=== PATIENT | female | born 1980 | race Caucasian/White ===

== ENCOUNTER → 2017-11-20 | Outpatient (CLI) | payer OTHER | LOC: FIMAGING 13:44 | PROVIDERS: ATTEND Physician Assistant Medical | DX: R20.0 Anesthesia of skin (principal); R20.2 Paresthesia of skin; R51 Headache ==

== ENCOUNTER 2017-12-07 09:58 | Emergency (ER) | payer OTHER ==
[2017-12-07 10:03] VITALS: TEMP 97.7
--- NOTE | 2017-12-07 13:01 | EDPHY ---
H & P Smoking Status: Current every day smoker Time Seen by Provider: 12/07/17 11:08 HPI/ROS: CHIEF COMPLAINT: Constipation HISTORY OF PRESENT ILLNESS: 29-year-old female presents to the emergency department with a history of chronic constipation. She also has a history of chronic bowel issues. She has gluten intolerant. She was recently started on amitriptyline which she thinks flared up her got. She denies any diarrhea. Denies abdominal pain. Denies chest pain or difficulty breathing. Denies fevers or chills. She tried multiple laxatives yesterday without relief. She is able to pass gas. REVIEW OF SYSTEMS: Constitutional: No fever, no chills. Eyes: No double or blurry vision. ENT: No sore throat. Respiratory: No cough, no shortness of breath. Cardiac: No chest pain. Gastrointestinal: Mild abdominal pain. Constipation. No vomiting or diarrhea. Genitourinary: No dysuria. Musculoskeletal: No neck or back pain. Skin: No rashes. Neurological: No headache. (IsaelChen Bam) Past Medical/Surgical History: Chronic GI issues, gluten intolerance (Bambi Kirklanda Bam) Social History: Single (Chen Kirkland) Physical Exam: General Appearance: Alert, no distress. Eyes: Pupils equal and round. Extraocular motions are all intact. ENT: Mouth: Mucous membranes moist. Respiratory: No wheezing, rhonchi, or rales, lungs are clear to auscultation. Cardiovascular: Regular rate and rhythm. Gastrointestinal: Abdomen is soft and nontender, no masses, no rebound or guarding, bowel sounds normal. No CVA tenderness bilaterally. Neurological: Alert and oriented x 3, cranial nerves II through XII grossly intact Skin: Warm and dry, no rashes. Musculoskeletal: Nontender to palpate along the cervical, thoracic or lumbar spine. Neck is supple. Extremities: Full range of motion and no peripheral edema. Psychiatric: Patient is oriented X 3, there is no agitation. (Colleen Kirklandrina Bam) Constitutional: Initial Vital Signs Temperature (C) 36.5 C 12/07/17 10:01 Heart Rate 95 12/07/17 10:01 Respiratory Rate 18 12/07/17 10:01 Blood Pressure 153/86 H 12/07/17 10:01 O2 Sat (%) 96 12/07/17 10:01 O2 Delivery Mode Room Air Allergies/Adverse Reactions: No Known Allergies Allergy (Unverified 12/07/17 10:00) Home Medications: Medication Instructions Recorded Estradiol 12/07/17 Laxative 12/07/17 Medical Decision Making ED Course/Re-evaluation: 37-year-old female presents to the emergency department with constipation. Patient had an x-ray done as an outpatient 1 week ago and she declined another x -ray. I did do a rectal exam and there was no stool noted. She did have a Fleet's enema and was not able to have a bowel movement. She has no abdominal pain. She feels comfortable being discharged home. She was requesting something different for her constipation. I did give her some GoLYTELY to go home with and she may use half a prep. I also encouraged to have close follow- up with GI the [facility]. (Chen Kirkland) I did not see this patient while she was in the emergency department. However her care was discussed with the PA while the patient was in the department. I agree with treatment plan and management (Roberto Lopez) Differential Diagnosis: Including but not limited to constipation, bowel obstruction, colitis (Chen Kirkland) Departure - Departure Disposition: Home, Routine, Self-Care Clinical Impression: Constipation Condition: Good Instructions: Constipation (ED) Additional Instructions: You may try magnesium citrate as directed. Drink plenty of fluids. You should keep scheduled follow-up appointment with Gastroenterology. Return to the emergency department sooner if he developed blood in her stool, fever, or if you feel worse in any way. Referrals: PABLO URRUTIA [Primary Care Provider] - As per Instructions Mary Kate Logan MD [Medical Doctor] - As per Instructions (Newsp[employer] on- call)
[2017-12-07 13:59] VITALS: BP 114/75; PULSE 72; RESP 16; O2SAT 97
== END 2017-12-07 13:59 | disposition home or self-care (01) ==
DX: K59.00 Constipation, unspecified (principal); F17.200 Nicotine dependence, unspecified, uncomplicated

== ENCOUNTER → 2018-11-05 | Outpatient (CLI) | payer OTHER ==
--- NOTE | 2018-11-06 09:34 | CPEEG ---
[f rep st] ELECTROENCEPHALOGRAM EEG DATE OF STUDY: 11/05/2018 DATE OF INTERPRETATION: November 06, 2018 DATE OF STUDY: November 05, 2018 INTERPRETATION: Normal EEG during wakefulness and sleep. There were no potentially epileptogenic ab normalities present in the recording. REPORT: This EEG contains 10 Hz alpha activity to the posterior head regions. The background activi ty was normal and symmetric. There was no abnormal activation at rest, photic stimulation or hyperve ntilation. The patient became drowsy and fell asleep during the study. There was no abnormal activa tion during drowsiness, sleep or during times of arousal. /[id number]/MODL
== END ==
LOC: FCPNEURO 13:46
PROVIDERS: ATTEND Psychiatry & Neurology Neurology
DX: R41.89 Other symptoms and signs involving cognitive functions and awareness (principal); R51 Headache